=== PATIENT | female | born 2000 | race Caucasian/White ===

== ENCOUNTER 2020-06-13 19:56 | Emergency (ER) | payer OTHER ==
[~2020-06-13] VITALS: Ht 160 cm; Wt 63.6 kg
[2020-06-13 20:03] VITALS: BP 126/76; Ht 160 cm; Wt 63.6 kg
[2020-06-13] MEDS ORDERED: HYDROCODON-ACE1 EAC7 PO (21:53)
== END 2020-06-13 22:13 | disposition home or self-care (01) ==
LOC: D.ER 19:56
DX: S61.012A Laceration without foreign body of left thumb without damage to nail, initial encounter (principal); W26.0XXA Contact with knife, initial encounter